=== PATIENT | female | born 1990 | race Caucasian/White ===

== ENCOUNTER 2016-12-29 00:27 | Emergency (ER) | payer OTHER ==
[2016-12-29 00:33] VITALS: RESP 16
[2016-12-29] MEDS ORDERED: HYDROCOD/APAP 5/325 PREPACK#6 BTL TAKEHOME ONE (02:25)
[2016-12-29] MEDS ORDERED: DEXAMETHASONE VARIABLE DOSE IVP/PO ONE (02:25)
[2016-12-29] MEDS ORDERED: AMOXICILLIN 250 MG PREPACK#4 BTL TAKEHOME ONE (02:25)
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
[2016-12-29 02:56] VITALS: BP 128/68; PULSE 68; TEMP 97.5; O2SAT 94
[2016-12-29] MEDS ORDERED: DEXAMETHASONE 4 MG TAB PO ONE (03:00)
== END 2016-12-29 02:55 | disposition home or self-care (01) ==
DX: J32.9 Chronic sinusitis, unspecified (principal)

== ENCOUNTER 2017-08-25 16:57 | Observation (INO) | payer OTHER ==
[2017-08-25 17:04] VITALS: RESP 18
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
[2017-08-25 18:11] VITALS: TEMP 97.9; O2SAT 95
[2017-08-25] MEDS ORDERED: TERBUTALINE SULFATE 1 MG/ML VIAL SC ONE (19:44)
[2017-08-25 20:15] VITALS: BP 120/70; PULSE 75
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
== END 2017-08-25 22:02 | disposition home or self-care (01) ==
LOC: EDUNIT# → FLD 17:28
PROVIDERS: ADMIT Obstetrics & Gynecology Gynecology; ATTEND Obstetrics & Gynecology Gynecology
DX: O9A.213 Injury, poisoning and certain other consequences of external causes complicating pregnancy, third trimester (principal); S39.91XA Unspecified injury of abdomen, initial encounter; Z3A.33 33 weeks gestation of pregnancy; V03.00XA Pedestrian on foot injured in collision with car, pick-up truck or van in nontraffic accident, initial encounter; Y92.481 Parking lot as the place of occurrence of the external cause; Y99.8 Other external cause status; Y93.01 Activity, walking, marching and hiking
CPT/HCPCS: G0378; J3105

== ENCOUNTER 2017-10-22 09:55 | Inpatient (IN) | payer OTHER ==
[2017-10-22] MEDS ORDERED: LR 1,000 ML IV PRN (10:06)
[2017-10-22] MEDS ORDERED: EPSOM SALT 454 GM TP PRN (10:06)
[2017-10-22] MEDS ORDERED: TERBUTALINE SULFATE 1 MG/ML VIAL IV PRN (10:06)
[2017-10-22] MEDS ORDERED: OLIVE OIL 118 ML BTL MISC PRN (10:06)
[2017-10-22] MEDS ORDERED: OXYTOCIN 20 UNIT in LR 1,000 ML IV PRN (10:06)
--- NOTE | 2017-10-22 10:12 | PDGENHP ---
History and Physical - Chief Complaint Labor sent over from center - History of Present Illness Patient is a 27 year old at 40 4/7 weeks gestation who was sent over from the [facility]. Per Patient noted to be Anterior Lip for one hour and with uncontrollable pain wanting an epidural. GBS positive received two doses of Ampicillin. Normal healthy . +FM no vaginal bleeding History Information - Allergies/Home Medication List Allergies/Adverse Reactions: No Known Allergies Allergy (Verified 08/25/17 17:01) Home Medications: Docosahexanoic Acid [Dha Complete] 2 08/25/17 [Last Taken 08/25/17 09:00] Enzymes,Digestive [Digestive Enzymes] 1 TIDMEAL PRN 08/25/17 [Last Taken 09:00] Vit27&Calcium/Iron/FA [ Rx 1 Tablet (RX)] 2 each PO DAILY 08/25 [Last Taken 08/25/17 09:00] I have personally reviewed and updated: medical history - Past Medical History no pertinent PMH - Social History Smoking Status: Never smoked Review of Systems Review of Systems: Physical Exam Physical Exam: Constitutional: appears nourished, uncomfortable Respiratory: no respiratory distress Gastrointestinal: soft, non-tender abdomen, other (Gravid EFW 3400g approximately) Skin: warm, normal color Musculoskeletal: full muscle strength Neurologic: AAOx3 Psychiatric: interacting appropriately Lab Data & Imaging Review A+/Rubella Immune/GBS positive HIV negative HBsAg negative Assessment & Plan Assessment: IUP at 40 4/7 weeks gestation Active labor Wants an epidural GBS + will give Ampicillin received two doses at center
[2017-10-22 10:21] LABS: % IMMATURE GRANULYOCYTES 0.8 % (0.0-1.1); ABSOLUTE IMMATURE GRANULOCYTES 0.19 10^3/uL (0.00-0.10); ADD DIFF? NO; ADD MORPH? NO; ADD SCAN? NO; ATYPICAL LYMPHOCYTE FLAG 0 (0-99); FRAGMENT RBC FLAG 0 (0-99); HEMATOCRIT 40.8 % (38.0-47.0); HEMOGLOBIN 14.7 g/dL (12.6-16.3); LEFT SHIFT FLG 10 (0-99); LIPEMIA HEMOLYSIS FLAG 90 (0-99); MEAN CELL HEMOGLOBIN 33.3 pg (27.9-34.1); MEAN CELL VOLUME 92.3 fL (81.5-99.8); MEAN PLATELET VOLUME 11.8 fL (8.7-11.7); PLATELET CLUMPS FLAG 10 (0-99); PLATELET COUNT 245 10^3/uL (150-400); RED BLOOD CELL COUNT 4.42 10^6/uL (4.18-5.33); RED CELL DISTRIBUTION WIDTH 13.1 % (11.5-15.2)
[2017-10-22] MEDS ORDERED: PHENYLEPHRINE HCL 100 MCG/ML SYR ONE (10:36)
[2017-10-22] MEDS ORDERED: fentaNYL 2MCG/ML/BUP 0.1% RTU 100 ML BAG EP ONE (10:36)
[2017-10-22] MEDS ORDERED: AMMONIA AROMATIC 1 EACH AMP IH ONE (10:37)
[2017-10-22] MEDS ORDERED: LIDOCAINE 1% 300 MG/30 ML SDV ONE (10:37)
[2017-10-22] MEDS ORDERED: OLIVE OIL 118 ML BTL ONE (10:37)
[2017-10-22] MEDS ORDERED: MISOPROSTOL 200 MCG TAB ONE (10:38)
[2017-10-22] MEDS ORDERED: OXYTOCIN 10 UNIT/ML VIAL ONE (10:38)
[2017-10-22] MEDS ORDERED: TERBUTALINE SULFATE 1 MG/ML VIAL ONE (10:38)
[2017-10-22] MEDS ORDERED: fentaNYL 100 MCG/2 ML INJ ONE (11:09)
[2017-10-22] MEDS ORDERED: LIDO/EPI 2% **for epidural** 20 ML SDV ONE (11:10)
[2017-10-22] MEDS: AMPICILLIN SODIUM 1 GM in NS 50 ML IV SCH ×3 (11:12→23:20)
--- NOTE | 2017-10-22 11:19 | PREANESOB ---
Obstetric Pre-Anesthesia Info - General Info Proposed Procedure: KAYLEE - Info Status: Full Term, Doty Monitors: External FHR Pattern: Reassuring - Labor Status PIH: No Indications for Labor Analgesia: Pain Control Labor Epidural: Proposed Anesthesia Allergies/Adverse Reactions: Allergy/AdvReac Type Severity Reaction Status Date / Time No Known Allergies Allergy Verified 08/25/17 17:01 Home Medications: Medication Instructions Recorded Docosahexanoic Acid [Dha Complete] 2 08/25/17 Enzymes,Digestive [Digestive 1 TIDMEAL PRN 08/25/17 Enzymes] Vit27&Calcium/Iron/FA 2 each PO DAILY 08/25/17 [ Rx 1 Tablet (RX)] Visit Medications: Generic Name Dose Route Start Last Admin Trade Name Freq PRN Reason Stop Dose Admin Lactated Ringer's 1,000 mls @ 0 mls/hr 10/22/17 10:06 Lr IV 04/20/18 10:05 PRN PRN SEE PROTOCOL CONDITIONS Protocol Per Protocol Oxytocin 20 unit/ Lactated 1,002 mls @ 150 mls/hr 10/22/17 10:06 Ringer's IV PRN PRN Post- bleeding Ampicillin Sodium 1 gm/ Sodium 50 mls @ 100 mls/hr 10/22/17 10:00 10/22/17 11 :12 Chloride IV 11/21/17 09:59 50 mls Q4 ASHLEY Administration Ibuprofen 600 mg 10/22/17 10:06 Motrin PO 04/20/18 10:05 Q6HRS PRN post , inflammation Magnesium Sulfate 454 gm 10/22/17 10:06 Epsom Salt TP 04/20/18 10:05 Q1H PRN perineal discomfort [place] Oil 118 ml 10/22/17 10:06 Sweet Oil MISC 04/20/18 10:05 ONCE PRN perineal massage Terbutaline Sulfate 0.25 mg 10/22/17 10:06 Brethine IV 04/20/18 10:05 ONCE PRN Tachysystole Discontinued Medications Generic Name Dose Route Start Last Admin Trade Name Freq PRN Reason Stop Dose Admin Ammonia (Aromatic Spirit) Confirm 10/22/17 10:37 Ammonia Aromatic Administered 10/22/17 10:38 Dose 1 each IH .STK-MED ONE Ephedrine Sulfate Confirm 10/22/17 10:37 Ephedrine Sulfate Administered 10/22/17 10:38 Dose 50 mg .ROUTE .STK-MED ONE Fentanyl Confirm 10/22/17 11:09 Sublimaze Administered 10/22/17 11:10 Dose 100 mcg .ROUTE .STK-MED ONE Fentanyl/Bupivacaine HCl Confirm 10/22/17 10:36 Fentanyl/Bupivacaine/Ns 2 Mcg/Ml 0.1% (Premix Administered 10/22/17 10:37 Dose 100 ml EP .STK-MED ONE Lidocaine HCl Confirm 10/22/17 10:37 Lidocaine Hcl 1% Administered 10/22/17 10:38 Dose 300 mg .ROUTE .STK-MED ONE Lidocaine/Epinephrine Confirm 10/22/17 11:10 Xylocaine 2%-Epi 1:200,000 Administered 10/22/17 11:11 Dose 20 ml .ROUTE .STK-MED ONE Misoprostol Confirm 10/22/17 10:38 Cytotec Administered 10/22/17 10:39 Dose 800 mcg .ROUTE .STK-MED ONE [place] Oil Confirm 10/22/17 10:37 Sweet Oil Administered 10/22/17 10:38 Dose 118 ml .ROUTE .STK-MED ONE Oxytocin Confirm 10/22/17 10:38 Pitocin Administered 10/22/17 10:39 Dose 40 unit .ROUTE .STK-MED ONE Phenylephrine HCl Confirm 10/22/17 10:36 Neosynephrine Administered 10/22/17 10:37 Dose 1,000 mcg .ROUTE .STK-MED ONE Terbutaline Sulfate Confirm 10/22/17 10:38 Brethine Administered 10/22/17 10:39 Dose 1 mg .ROUTE .STK-MED ONE Labs: 10/22/17 10:10 Patient ABO/Rh A POSITIVE 10/22/17 10:10
[2017-10-22] MEDS ORDERED: fentaNYL 2MCG/ML/BUP 0.1% RTU 100 ML EP SCH (11:30)
[2017-10-22] MEDS ORDERED: LR 500 ML IV SCH (11:30)
--- NOTE | 2017-10-22 11:30 | POSTANESTH ---
Post Anesthetic Evaluation Cardiovascular Status: Normal, Stable, Similar to Pre-Op Cond Respiratory Status: Normal, Stable, Similar to Pre-op Cond. Level of Consciousness/Mental Status: Can Participate in Eval, Alert and Oriented Pain Control: Inadeq, Add Tx Required (No relief from usual loading dose. Additional 1% lido + fent given with moderate relief.) Nausea/Vomiting Control: Adequate, Prn Tx Ordered Complications Possibly Related to Anesthesia: None Noted
[2017-10-22] MEDS ORDERED: AMPICILLIN SODIUM 1 GM in NS 100 ML IV SCH (14:07)
[2017-10-22] MEDS ORDERED: ACETAMINOPHEN 325 MG TAB PO PRN (14:59)
[2017-10-22] MEDS ORDERED: HYDROCODONE/APAP 5/325 TAB PO PRN (14:59)
--- NOTE | 2017-10-22 15:09 | OBDEL ---
Info Type: Vaginal Presentation at Delivery: Vertex L&D Analgesia/Anesthesia Type: Epidural GBS+: Yes Antibiotic Used for + GBS: Ampicillin Intrapartum Medications: Generic Name Dose Route Start Last Admin Trade Name Radha PRN Reason Stop Dose Admin Ampicillin Sodium 1 gm/ Sodium 50 mls @ 100 mls/hr 10/22/17 10:00 10/22/17 11 :12 Chloride IV 11/21/17 09:59 50 mls Q4 ASHLEY Administration - Hospital Course Intrapartum: 10/22/17 15:05 Patient arrived from the [facility] OP position who wanted an epidural. Patient receive epidural and pushed for 2 hours.Normal spontaneous vaginal delivery over 1st degree laceration no repair no bleeding Indications for Delivery: Spontaneous Labor Vaginal Delivery - Delivery Provider Delivery Physician/CNM: Rea Siegel - Labor and Delivery Onset of Contractions Date: 10/21/17 Onset of Contractions Time: 21:00 Onset of Contractions Type: Augmented Rupture of Membranes Date: 10/22/17 Rupture of Membranes Time: 08:00 Rupture of Membranes Type: Artificial Amniotic Fluid Color: Clear Dilation Complete Date: 10/22/17 Dilation Complete Time: 10:17 Placenta Delivery Date: 10/22/17 Placenta Delivery Time: 14:45 Total Hours of Labor: 17 Vaginal Sponge Count Correct: Yes Vaginal Needle Count Correct: Yes Vaginal Sweep Performed: Yes EBL: 200 Delivery Events: None Delivery Comment: Normal spontaneous vaginal delivery over first degree laceration not bleeding no repair. Placenta spontaneously delivered intact. - Medications Labor Augmentation/Induction Methods Used: Pitocin, Other (Specify) Labor Augmentation/Induction Indication: Contraction Strength Inadequate [place] Data [place] Delivery Date: 10/22/17 Delivery Time: 14:41 RANGEL: 10/18/17 Gestational Age: 40 week(s) and 4 day(s) Sex of Infant: Male Score (1 Min): 8 Score (5 Min): 9 ICD10 Worksheet Patient Problems: Problems Problem Status Onset Active labor Acute Parotitis Acute - ICD10 Problem Qualifiers (1) Active labor
[2017-10-22 15:11] LABS: PH VENOUS CORD BLOOD 7.35 (7.20-7.42)
[2017-10-22] MEDS: IBUPROFEN 600 MG TAB PO PRN ×2 (16:10→22:13)
[2017-10-23] MEDS: IBUPROFEN 600 MG TAB PO PRN ×4 (04:04→22:25)
--- NOTE | 2017-10-23 07:25 | OBPP ---
Progress Note Assessment/Plan: Assessment: Post care Stable afebrile Doing well no complaints Plan: Continue routine care today Lanolin cream Possible discharge home tomorrow mom was GBS+ 10/23/17 07:11 10/23/17 07:33 Subjective/ Course: 10/23/17 07:32 Doing well no complaints. +Flatus, voiding well, tolerating diet and ambulating Objective: 10/22/17 10:10 Patient ABO/Rh A POSITIVE 10/22/17 10:10 Temp Pulse Resp BP Pulse Ox 36.7 C 72 12 115/68 10/22/17 19:20 10/22/17 19:20 10/22/17 19:20 10/22/17 19:20 Uterine Position/Fundal Height: Umbilicus -2 Uterine Tone: Firm Physical Exam - Physical Exam Respiratory: chest non-tender Abdomen: normal bowel sounds, non-tender, soft Extremities: normal range of motion, non-tender, normal inspection Back: Normal inspection Skin: normal color, warm/dry Neuro/Psych: no motor/sensory deficits, alert, normal mood/affect, oriented x 3
[2017-10-23 08:27] VITALS: RESP 16
[2017-10-23 20:30] VITALS: O2SAT 96
[2017-10-23] MEDS: DOCUSATE SODIUM 100 MG CAP PO PRN (22:25)
[2017-10-24] MEDS: DOCUSATE SODIUM 100 MG CAP PO PRN (09:00)
[2017-10-24] MEDS: IBUPROFEN 600 MG TAB PO PRN (09:00)
[2017-10-24 09:21] VITALS: BP 112/66; PULSE 86; TEMP 97.4
[2017-10-24] MEDS ORDERED: MEASLES,MUMPS&RUBELLA VACC/PF 0.5 ML VIAL SC ONE (09:32)
--- NOTE | 2017-10-24 09:37 | OBPP ---
Progress Note Assessment/Plan: Assessment: 27 y/o PPD #2 s/p doing well. Plan: D/c home today with Ibuprofen and APNO cream. Pt will follow-up with her home health data administrator. I advised her to call for fever, heavy bleeding, or s/sx's mastitis. She may be seen @ [facility] 4 and 6 weeks. 10/24/17 09:35 Subjective/ Course: 10/23/17 07:32 Doing well no complaints. +Flatus, voiding well, tolerating diet and ambulating 10/24/17 09:34 Pt is doing well today. She has min cramping controlled by Ibuprofen. She has nipple pain and chafing needing some nipple cream today. She is ready to d/c home. Objective: 10/22/17 10:10 Patient ABO/Rh A POSITIVE 10/22/17 10:10 Temp Pulse Resp BP Pulse Ox 36.3 C 86 16 112/66 96 10/24/17 08:00 10/24/17 08:00 10/24/17 08:00 10/24/17 08:00 10/23/17 20:00 Uterine Position/Fundal Height: Umbilicus -2 Uterine Tone: Firm Physical Exam - Physical Exam Neck: non-tender, full range of motion, supple Respiratory: chest non-tender, lungs clear, normal breath sounds Cardiac/Chest: regular rate, rhythm Abdomen: normal bowel sounds Extremities: swelling (no), Alan's sign (neg)
--- NOTE | 2017-10-24 09:39 | OBGCSDC ---
General Delivery Information - General Info : 1 Para: 1 Abortions: 0 Type: Vaginal L&D Analgesia/Anesthesia Type: Epidural Admission Date: 10/22/17 Labs: Patient ABO/Rh A POSITIVE 10/22/17 10:10 Hct 40.8 % (38.0-47.0) 10/22/17 10:10 - Hospital Course Antepartum: 10/24/17 09:38 PNC with home cut file clerk. GBS +, presented in active labor needing augmentation. No other risk factors Intrapartum: 10/22/17 15:05 Patient arrived from the home center / OP position who wanted an epidural. Patient receive epidural and pushed for 2 hours.Normal spontaneous vaginal delivery over 1st degree laceration no repair no bleeding : 10/23/17 07:32 Doing well no complaints. +Flatus, voiding well, tolerating diet and ambulating 10/24/17 09:34 Pt is doing well today. She has min cramping controlled by Ibuprofen. She has nipple pain and chafing needing some nipple cream today. She is ready to d/c home. Vaginal - Delivery Provider Delivery Physician/CNM: Rea Siegel - Diagnosis Labor: Augmented Rupture of Membranes Type: Artificial Amniotic Fluid Color: Clear Delivery Events: None - Delivery EBL: 200 [place] Data [place] Delivery Date: 10/22/17 Delivery Time: 19:34 RANGEL: 10/18/17 Gestational Age: 40 week(s) and 6 day(s) Sex of Infant: Male Weight (gm): 3566 kg Score (1 Min): 8 Score (5 Min): 9 Discharge Information - Discharge Information Prescriptions: Ibuprofen [Motrin (*)] 600 mg PO Q6HRS PRN #30 tab PRN Reason: post , inflammation Condition: Good Instruction/Follow Up: Four Weeks, Six Weeks
== END 2017-10-24 12:45 | disposition home or self-care (01) | DRG 775 ==
LOC: FLD 09:55 → FOB 18:55
PROVIDERS: ADMIT Obstetrics & Gynecology; ATTEND Obstetrics & Gynecology
DX: O48.0 Post-term pregnancy (principal); Z37.0 Single live birth; O99.824 Streptococcus B carrier state complicating childbirth
CPT/HCPCS: J0290; J2370; J3010; J3105

== ENCOUNTER 2018-12-07 10:54 | Emergency (ER) | payer MEDICAID, OTHER ==
[2018-12-07] MEDS ORDERED: ONDANSETRON 4 MG/2 ML VIAL IVP ONE (11:56)
[2018-12-07 11:57] LABS: PLATELET COUNT 351 10^3/uL (150-400)
[2018-12-07] MEDS ORDERED: NS 1,000 ML IV ONE ×3 (11:58→14:41)
[2018-12-07] MEDS ORDERED: HYDROmorphONE/DILAUDID 2 MG/ML INJ IVP ONE ×2 (12:56→14:41)
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
[2018-12-07] MEDS ORDERED: HYDROmorphONE/DILAUDID 1 MG/ML INJ ONE (15:00)
[2018-12-07] MEDS ORDERED: METOCLOPRAMIDE 10 MG/2 ML VIAL IVP ONE (15:13)
[2018-12-07] MEDS ORDERED: KETOROLAC 15 MG/1 ML SDV IVP ONE (15:13)
[2018-12-07 16:03] VITALS: BP 105/53
== END 2018-12-07 16:03 | disposition home or self-care (01) ==
LOC: EEVIPCON 10:54
DX: M79.10 Myalgia, unspecified site (principal); R11.2 Nausea with vomiting, unspecified; R19.7 Diarrhea, unspecified; E86.9 Volume depletion, unspecified
CPT/HCPCS: 96374; J1170; J1885; J2405

== ENCOUNTER 2019-04-26 10:45 | Emergency (ER) | payer MEDICAID | END 2019-04-26 15:06 | disposition home or self-care (01) ==